=== PATIENT | female | born 2000 | race Caucasian/White ===

== ENCOUNTER 2021-12-29 00:32 | Inpatient (IN) ==
[2021-12-29] MEDS ORDERED: OXYTOCIN/LR 20 UNIT/1,000 ML BAG IV ONE (00:39)
[2021-12-29] MEDS ORDERED: ACETAMINOPHEN 325 MG TABLET PO PRN (00:39)
[2021-12-29] MEDS ORDERED: miSOPROStoL 200 MCG TABLET RECTAL PRN (00:39)
[2021-12-29] MEDS ORDERED: BUTORPHANOL 1 MG/ML VIAL IV PRN (00:39)
[2021-12-29] MEDS ORDERED: LACTATED RINGERS 250 ML IV ONE (00:39)
[2021-12-29] MEDS ORDERED: ONDANSETRON 4 MG/2 ML VIAL IV PRN (00:39)
[2021-12-29] MEDS ORDERED: METHYLERGONOVINE 0.2 MG/1 ML AMP IM PRN (00:39)
[2021-12-29] MEDS ORDERED: LACTATED RINGERS 500 ML IV PRN (00:39)
[2021-12-29] MEDS ORDERED: TRANEXAMIC ACID 1,000 MG in SODIUM CHLORIDE 0.9% 100 ML IV PRN (00:39)
[2021-12-29] MEDS ORDERED: CARBOPROST TROMETHAMINE 250 MCG/ML AMP IM PRN (00:39)
[2021-12-29] MEDS ORDERED: BUTORPHANOL 2 MG/ML VIAL IV PRN (00:39)
[2021-12-29 01:04] LABS: Basophils % 0.2 % (0.0-0.8); Eosinophils # 0.3 10*3/uL (0.0-0.87); Eosinophils % 2.5 % (0.00-10.9); Hematocrit 36.8 VOL% (35.7-47.0); Immature Granulocytes % 0.9 %; Immature Granulocytes Absolute 0.11 #; Lymphocytes # 2.1 10*3/uL (1.4-4.0); Lymphocytes % 17.6 % (21.3-54.2); Mean Corpuscular HGB Conc 32.6 GM/DL (32-36); Mean Corpuscular Volume 89.3 FL (87-102); Mean Platelet Volume 12.4 FL (9.6-12.0); Monocytes # 0.7 10*3/uL (0.11-0.8); Neutrophils % 72.8 % (38.7-73.9); Platelet Count 252 T/CUMM (130-400); Red Blood Count 4.12 MC/CUMM (3.8-5.5); Red Cell Distribution Width 12.9 % (9.3-17.3); White Blood Count 12.1 T/CUMM (4-12)
[2021-12-29 01:09] LABS: Bacteria,Urine Occasional /HPF (Few); Calcium Oxalate Crystals,Urine Moderate /HPF (Few); Mucus,Urine Moderate /LPF (Occasional); RBC,Urine 4 /HPF (0-4); Squamous Epithelial Cell,Urine Moderate /HPF (0-10)
[2021-12-29 01:10] LABS: Bilirubin,Urine Small mg/dL (Negative); Blood, Urine Negative (Negative); Glucose,Urine (UA) Negative (Negative); Ketones,Urine TR mg/dL (Negative); Nitrite,Urine Negative (Negative); Protein,Urine 30 mg/dL (Negative); Urine Appearance Slightly Cloudy (Clear); Urine Color Yellow (Yellow); Urine Specific Gravity > 1.030 (1.001-1.035)
[2021-12-29] MEDS: LACTATED RINGERS 1,000 ML IV SCH ×3 (01:39→14:26)
[2021-12-29] MEDS ORDERED: OXYTOCIN/LR 20 UNIT/1,000 ML BAG IV SCH (02:00)
[2021-12-29] MEDS ORDERED: PROMETHAZINE 25 MG/1 ML VIAL IM ONE (09:44)
[2021-12-29] MEDS ORDERED: FAMOTIDINE 20 MG/2 ML VIAL IV ONE (09:44)
[2021-12-29] MEDS ORDERED: ONDANSETRON 4 MG/2 ML VIAL IV ONE (09:44)
[2021-12-29] MEDS ORDERED: NALOXONE 0.4 MG/ML VIAL IV PRN (09:44)
[2021-12-29] MEDS ORDERED: ePHEDrine 50 MG/ML VIAL IV PRN (09:44)
[2021-12-29] MEDS ORDERED: diphenhydrAMINE 50 MG/1 ML VIAL IV PRN ×2 (09:44)
[2021-12-29] MEDS ORDERED: hydrOXYzine HCL 25 MG/1 ML VIAL IM PRN (09:44)
[2021-12-29] MEDS ORDERED: CITRIC ACID/SODIUM CITRATE 30 ML UDCUP PO ONE (09:44)
[2021-12-29] MEDS: fentaNYL 2 MCG/ROPIV 0.2% EPID 100 ML EPIDURAL SCH ×2 (11:21→19:31)
[2021-12-29 18:14] LABS: Amorphous Crystals,Urine Occasional /HPF (Few); Bacteria,Urine Occasional /HPF (Few); Bilirubin,Urine Negative (Negative); Blood, Urine Negative (Negative); Glucose,Urine (UA) Negative (Negative); Ketones,Urine Negative (Negative); Mucus,Urine Occasional /LPF (Occasional); Nitrite,Urine Negative (Negative); Protein,Urine Negative (Negative); RBC,Urine 6 /HPF (0-4); Urine Appearance Clear (Clear); Urine Color Yellow (Yellow); Urine Specific Gravity 1.015 (1.001-1.035); Urine Urobilinogen 0.2 eU/dL (<2.0)
[2021-12-29 21:50] LABS: Cord Arterial Blood HCO3 17.1 MMOL/L
[2021-12-29 21:53] LABS: Cord Venous Blood HCO3 21.7 MMOL/L; Cord Venous Blood PCO2 43.8 MMHG; Cord Venous Blood PO2 37.6
[2021-12-29] MEDS: IBUPROFEN 800 MG TABLET PO PRN (23:35)
[2021-12-30] MEDS ORDERED: MEASLES/MUMPS/RUBELLA VACCINE 0.5 ML VIAL SUBCUT ONE (00:15)
[2021-12-30] MEDS ORDERED: BISACODYL 10 MG SUPP RECTAL PRN (00:15)
[2021-12-30] MEDS ORDERED: DIPH/TET/ACEL PERT BOOSTER VACCINE 0.5 ML VIAL IM ONE (00:15)
[2021-12-30] MEDS ORDERED: WITCH HAZEL PADS 100/JAR TOP PRN (00:15)
[2021-12-30] MEDS ORDERED: OXYTOCIN/LR 20 UNIT/1,000 ML BAG IV ONE (00:15)
[2021-12-30] MEDS ORDERED: HYDROCORTISONE 2.5% RECTAL CREAM 30 GM TUBE TOP PRN (00:15)
[2021-12-30] MEDS ORDERED: LANOLIN 50% CREAM 0.3 OZ TUBE TOP PRN (00:15)
[2021-12-30] MEDS ORDERED: IBUPROFEN 800 MG TABLET PO PRN (00:15)
[2021-12-30] MEDS ORDERED: RHO(D) IMMUNE GLOBULIN 300 MCG SYRINGE IM ONE (00:15)
[2021-12-30] MEDS ORDERED: BENZOCAINE 20%/MENTHOL 0.5% SPRAY 56 GM CAN TOP PRN (00:15)
[2021-12-30] MEDS ORDERED: oxyCODONE/ACETAMINOPHEN 5-325 MG TABLET PO PRN (00:15)
[2021-12-30 05:04] LABS: Basophils % 0.3 % (0.0-0.8); Eosinophils # 0.2 10*3/uL (0.0-0.87); Eosinophils % 1.7 % (0.00-10.9); Hematocrit 33.7 VOL% (35.7-47.0); Hemoglobin 10.9 GM/DL (12.0-16.0); Immature Granulocytes % 0.6 %; Immature Granulocytes Absolute 0.08 #; Lymphocytes # 1.6 10*3/uL (1.4-4.0); Lymphocytes % 11.7 % (21.3-54.2); Mean Corpuscular HGB Conc 32.3 GM/DL (32-36); Mean Corpuscular Volume 91.3 FL (87-102); Monocytes # 0.7 10*3/uL (0.11-0.8); Monocytes % 4.8 % (1.7-12.7); Neutrophils % 80.9 % (38.7-73.9); Platelet Count 182 T/CUMM (130-400); Red Blood Count 3.69 MC/CUMM (3.8-5.5); Red Cell Distribution Width 12.8 % (9.3-17.3); White Blood Count 13.9 T/CUMM (4-12)
[2021-12-30] MEDS: IBUPROFEN 800 MG TABLET PO PRN (07:10)
[2021-12-30] MEDS: DOCUSATE SODIUM 100 MG CAPSULE PO SCH (09:41)
[2021-12-30] MEDS: oxyCODONE/ACETAMINOPHEN 5-325 MG TABLET PO PRN ×2 (13:01→22:28)
[2021-12-31] MEDS: DOCUSATE SODIUM 100 MG CAPSULE PO SCH ×2 (03:00→10:03)
[2021-12-31] MEDS: oxyCODONE/ACETAMINOPHEN 5-325 MG TABLET PO PRN (04:14)
[2021-12-31 07:18] VITALS: BP 119/73
== END 2021-12-31 15:15 | disposition home or self-care (01) | DRG 560 ==
LOC: N.LD 00:32 → N.OB 12-30 00:05
PROVIDERS: ADMIT Obstetrics & Gynecology; ATTEND Obstetrics & Gynecology